=== PATIENT | male | born 1980 | race African-American/Black ===

== ENCOUNTER 2016-12-13 16:29 | Emergency (ER) | payer BC ==
[~2016-12-13] VITALS: Ht 182.9 cm; Wt 81.6 kg
[2016-12-13] MEDS ORDERED: IBUPROFEN 600 MG TABLET PO ONE (16:45)
--- NOTE | 2016-12-13 16:45 | NUR ---
Pt c/o dislocating pinky on left hand, middle joint, finger struck by ball during a dodgeball game, PMS intact, cap refill <2 sec. No other complaints, no distress noted. ERMD reduced bedside.
[2016-12-13] MEDS ORDERED: IBUPROFEN 600 MG TABLET ONE (16:46)
--- NOTE | 2016-12-13 17:17 | NUR ---
Gave pt d/c instructions, verbalized understanding.
== END 2016-12-13 17:12 | disposition home or self-care (01) ==
LOC: ER 16:32
DX: S63.287A Dislocation of proximal interphalangeal joint of left little finger, initial encounter (principal); X58.XXXA Exposure to other specified factors, initial encounter; Y93.6A Activity, physical games generally associated with school recess, summer camp and children; Y99.8 Other external cause status; Y92.89 Other specified places as the place of occurrence of the external cause
CPT/HCPCS: 26770; 73130; 99284; A4663

== ENCOUNTER 2020-04-18 22:11 | Emergency (ER) | payer BC, OTHER ==
[~2020-04-18] VITALS: Ht 185.4 cm; Wt 89.8 kg
[2020-04-18] MEDS ORDERED: LIDOCAINE HCL 1% 20 ML VIAL IJ ONE (23:00)
[2020-04-18] MEDS ORDERED: TDAP DIPH,PERTUSS,TET VAC/PF 0.5 ML DISP.SYRIN IM ONE (23:00)
[2020-04-18] MEDS ORDERED: IBUPROFEN 800 MG TABLET PO ONE (23:15)
[2020-04-19] MEDS ORDERED: TDAP DIPH,PERTUSS,TET VAC/PF 0.5 ML DISP.SYRIN IM ONE (00:24)
[2020-04-19] MEDS ORDERED: IBUPROFEN 800 MG TABLET ONE (00:24)
--- NOTE | 2020-04-19 01:18 | NUR ---
Patient discharged to home in stable condition. Written and verbal after care instructions given. Patient verbalizes understanding of instructions. Stressed follow up or return to ER for worsening s/s. Patient ambulated with stable gait.
[2020-04-19 01:58] VITALS: BP 121/89
== END 2020-04-19 01:58 | disposition home or self-care (01) ==
LOC: ER 22:15
DX: S61.512A Laceration without foreign body of left wrist, initial encounter (principal); S51.812A Laceration without foreign body of left forearm, initial encounter; W25.XXXA Contact with sharp glass, initial encounter; Y92.89 Other specified places as the place of occurrence of the external cause
CPT/HCPCS: 12002; 73110; 76881; 90471; 90715; 99284; J3490; A4217; A4663